=== PATIENT | female | born 1975 | race Caucasian/White ===

== ENCOUNTER 2020-03-03 05:27 | Day surgery (SDC) | payer OTHER ==
[~2020-03-03 05:27] MED LIST: ACETAMINOPHEN 1,000 MG/100 ML RTUPB IV ONE; ACETAMINOPHEN 1,000 MG/100 ML RTUPB IV PRN; IBUPROFEN 800 MG in NORMAL SALINE 250 ML IV ONE; METRONIDAZOLE 500 MG/NS RTU 500 MG/100 ML RTUPB IV ONE; METRONIDAZOLE 500 MG/NS RTU 500 MG/100 ML RTUPB IV PRN
[2020-03-03] MEDS ORDERED: FENTANYL CITRATE INJ/PF 100 MCG/2 ML AMPUL ONE (06:56)
[2020-03-03] MEDS ORDERED: KETOROLAC TROMETHAMINE 60 MG/2 ML SDV ONE (06:56)
[2020-03-03] MEDS ORDERED: PROPOFOL INJ 200 MG/20 ML VIAL IV ONE (06:57)
[2020-03-03] MEDS ORDERED: MIDAZOLAM 2 MG/2 ML INJ ONE (06:57)
[2020-03-03] MEDS ORDERED: DEXAMETHASONE SOD PHOSPHATE INJ 4 MG/1 ML VIAL ONE (06:57)
[2020-03-03] MEDS ORDERED: ONDANSETRON HCL INJ/PF 4 MG/2 ML SDV ONE (06:57)
[2020-03-03] MEDS ORDERED: SUCCINYLCHOLINE CHLORIDE INJ 200 MG/10 ML VIAL ONE (07:00)
[2020-03-03] MEDS ORDERED: BACITRACIN ZINC OINTMENT 15 GM ONE (07:07)
[2020-03-03] MEDS ORDERED: BUPIVACAINE INJ/PF LIPOSOME/PF 266 MG/20 ML SDV ONE (07:07)
[2020-03-03] MEDS ORDERED: LIDOCAINE 2% JELLY 30 ML TUBE ONE (07:07)
[2020-03-03] MEDS ORDERED: MEPERIDINE HCL/PF INJ 25 MG/1 ML DISP.SYRIN IV PRN (08:03)
[2020-03-03] MEDS ORDERED: MORPHINE SULFATE 10 MG/ML INJ IV PRN (08:03)
[2020-03-03] MEDS ORDERED: FENTANYL CITRATE INJ/PF 100 MCG/2 ML AMPUL IV PRN ×3 (08:03)
[2020-03-03] MEDS ORDERED: PROMETHAZINE HCL INJ 25 MG/1 ML VIAL IV PRN ×2 (08:03)
[2020-03-03] MEDS ORDERED: ONDANSETRON HCL INJ/PF 4 MG/2 ML SDV IV PRN (08:03)
[2020-03-03] MEDS ORDERED: DIPHENHYDRAMINE HCL 50 MG/ML VIAL IV PRN (08:03)
[2020-03-03] MEDS ORDERED: OXYCODONE-ACETAMINOPHEN 5-325 MG TABLET PO PRN ×2 (08:03)
--- NOTE | 2020-03-03 08:18 | Discharge Summary ---
Discharge Summary (SDC) - Discharge Final Diagnosis: internal/external hemorrhoids Date of Surgery: 03/03/20 Discharge Date: 03/03/20 Forms: ASU Anesthesia D/C Instruction, Discharge POC-Surgical Service Treatment or Instructions: d/c home. Diet: As tolerated. Activity: Nonstrenuous. Soak anus and buttock in warm soapy water twice daily and after bowel movements. Fiber supplement twice daily. Colace 100 mg p.o. twice daily. Ibuprofen 800 mg p.o. 3 times daily with meals. [place] 10/325 mg p.o. every 6 hours as needed for pain. 5% lidocaine ointment to anus and rectum 3 times daily. Neosporin ointment (ov [id number]) apply to anus and rectum 3 times daily. Follow-up with [facility] in 7 to 10 days. Prescriptions: Ibuprofen [Motrin 800 mg Tablet] 800 mg PO TID #42 tablet Hydrocodone/Acetaminophen [[place] 10-325 mg Tablet] 1 tab PO Q6HP PRN #28 tablet PRN Reason: For Pain Referrals: AMPARO LEIVA MD [ACTIVE STAFF] - 03/16/20 10:45 am Respiratory Treatments at Home: Deep Breathing/Coughing Discharge Activity: Balance Activity w/Rest Home Care Assistance: None Needed Report the Following to Your Physician Immediately: Shortness of Breath, Nausea, Vomiting, Increase in Pain, Fever over 101 Degrees, Unusual Bleeding, Redness
--- NOTE | 2020-03-03 08:20 | Operative Report ---
Nonrecallable Operative Report DATE OF SURGERY: 03/03/20 PREOPERATIVE DIAGNOSIS: Large internal and external hemorrhoids, right posterior position POSTOPERATIVE DIAGNOSIS: Same as above OPERATION: Single column internal and external hemorrhoidectomy. SURGEON: AMPARO LEIVA ANESTHESIA: GA TISSUE REMOVED OR ALTERED: Right posterior internal and external hemorrhoid column. COMPLICATIONS: None apparent ESTIMATED BLOOD LOSS: Minimal PROCEDURE: Drains/implants: None. Procedure in detail: After informed consent was obtained, the patient was brought to the operating room and laid in the prone jackknife position. The anus and rectum were prepped and draped in a normal sterile fashion. An anal block was created with Exparel. A Hill-Torres retractor was inserted into the anus. The hemorrhoids were found to be enlarged in the right posterior position. These were excised using Bovie electrocautery. The resulting defect was then closed using 3-0 chromic suture in simple running fashion. Great care was taken to reapproximate mucosa to mucosa, anoderm to anoderm, and skin to skin. Once this was completed, no other significant hemorrhoids were identified. A dressing was then placed, and the procedure was concluded. All sponge, instrument, needle counts were correct x2. Condition: Stable.
[2020-03-03 10:41] VITALS: BP 105/66
== END 2020-03-03 10:25 | disposition home or self-care (01) ==
LOC: OROUT 05:27
PROVIDERS: ATTEND Surgery
DX: K64.4 Residual hemorrhoidal skin tags (principal); K64.8 Other hemorrhoids; Z20.828 Contact with and (suspected) exposure to other viral communicable diseases
CPT/HCPCS: 88304 ×2; 46255; J2250; J3490 ×2; J1100; J1885; J3010; J0330; J2405; J7050; J2704; J0131; C9290; J1741; 902